=== PATIENT | female | born 1990 | race Caucasian/White ===

== ENCOUNTER 2017-08-28 18:25 | Emergency (ER) | payer OTHER ==
[~2017-08-28] VITALS: Ht 152.4 cm; Wt 78.5 kg
[~2017-08-28 18:25] MED LIST: CETI10; CYCL10 PO; PERM5TC TOP; RXTRAM50 PO; TRAM50 PO; TRIA80TC TOP
[2017-08-28] MEDS ORDERED: TRAM50 PO (19:39)
== END 2017-08-28 20:02 | disposition home or self-care (01) ==
LOC: ER 18:25
DX: S93.602A Unspecified sprain of left foot, initial encounter (principal); F17.210 Nicotine dependence, cigarettes, uncomplicated; Z88.0 Allergy status to penicillin; Z88.6 Allergy status to analgesic agent; Z87.442 Personal history of urinary calculi; W10.9XXA Fall (on) (from) unspecified stairs and steps, initial encounter
CPT/HCPCS: 73630